=== PATIENT | female | born 1965 | race Two or more races ===

== ENCOUNTER 2024-02-24 20:16 | Emergency (ER) | payer OTHER ==
[~2024-02-24] VITALS: Ht 157.5 cm; Wt 80.9 kg
[2024-02-24] MEDS: HYDROcodone-ACET 5/325MG TAB PO ONE (21:54)
[2024-02-24] MEDS: ONDANSETRON ODT 4 MG TAB PO ONE (21:54)
[2024-02-24] MEDS: MECLIZINE HCL 25 MG TAB PO ONE (21:54)
[2024-02-24] MEDS: KETOROLAC TROMETH 60MG/2ML VIAL IM ONE (21:55)
[2024-02-24 22:01] LABS: Urine Bacteria FEW /hpf (None Seen); Urine Blood Negative /uL (Negative); Urine Clarity Clear (Clear); Urine Color Light-Yellow (Yellow); Urine Mucus FEW (None Seen); Urine Protein, UAD Negative (Negative); Urine Specific Gravity 1.009 (1.001-1.035); Urine Urobilinogen Normal (Negative); Urine WBC 8 /hpf (0 - 5); Urine pH 5.5 (5.0-9.0)
[2024-02-24] MEDS: SODIUM CHLORIDE 0.9% 1,000 ML IV ONE (23:16)
[2024-02-24] MEDS ORDERED: ARTIFICIAL TEARS 15ml EACHEYE ONE (23:30)
[2024-02-24 23:57] LABS: Basophils # (auto) 0.1 10 ^3/uL (0-0.2); Basophils % (auto) 0.6 % (0.0-2.0); Eosinophils # (auto) 1.3 10 ^3/uL (0-0.8); Hematocrit 38.9 % (36.0-46.0); Hemoglobin 12.8 g/dL (12.2-16.2); Lymphocytes # (auto) 3.1 10 ^3/uL (0.4-5.4); Lymphocytes % (auto) 24.1 % (10.0-50.0); Mean Corpuscular Hemoglobin 29.8 pg (28.0-32.0); Mean Corpuscular Hgb Conc. 32.9 g/dL (32.0-36.0); Mean Corpuscular Volume 90.4 fL (80.0-100.0); Monocytes # (auto) 0.9 10 ^3/uL (0-1.3); Monocytes % (auto) 7.2 % (0.0-12.0); Neutrophils # (auto) 7.5 10 ^3/uL (1.6-8.6); Neutrophils % (auto) 58.1 % (37.0-80.0); Red Cell Distribution Width 13.2 % (11.8-14.3); White Blood Cell 12.9 10^3/uL (4.4-10.8)
[2024-02-24] MEDS: NITROFURANTOIN 100 mg CAP PO ONE (23:59)
[2024-02-25 00:22] LABS: Alanine Aminotransferase 17 U/L (7-40); Alkaline Phosphatase 62 U/L (46-116); Anion Gap 5 (5-15); Aspartate Aminotransferase 12 U/L (13-40); BUN/Creatinine Ratio 12.8 (10.0-20.0); Blood Urea Nitrogen 11 mg/dL (9-23); Calcium 9.5 mg/dL (8.7-10.4); Carbon Dioxide 26 mmol/L (20-30); Chloride 108 mmol/L (98-107); Glucose 149 mg/dL (74-106); Lipase 36 U/L (12-53); Potassium 3.8 mmol/L (3.5-5.1); Sodium 139 mmol/L (136-145)
[2024-02-25 00:23] LABS: Albumin 4.1 g/dL (3.2-4.8); Bilirubin, Total 0.4 mg/dL (0.2-1.0); Total Protein 6.8 g/dL (5.7-8.2)
[2024-02-25] MEDS ORDERED: NITR-87 PO (01:24)
[2024-02-25] MEDS: SODIUM CHLORIDE 0.9% 1,000 ML IV ONE (01:54)
[2024-02-25] MEDS: cefTRIAXone SOD 1,000 MG VL IM ONE (01:54)
[2024-02-25 02:32] VITALS: BP 119/59; PULSE 58; RESP 17; TEMP 97.4; O2SAT 99
== END 2024-02-25 01:28 | disposition home or self-care (01) ==
LOC: ER 20:16
DX: I24.9 Acute ischemic heart disease, unspecified (principal); N39.0 Urinary tract infection, site not specified; R00.1 Bradycardia, unspecified
CPT/HCPCS: 36415; 80053; 81001; 83605; 83690; 84484; 85025; 93005; 96360; 96361; 96372; 99285; J0696; J1885; J7030; J8597; Q0162

== ENCOUNTER 2024-05-06 14:29 | Emergency (ER) | payer OTHER ==
[~2024-05-06] VITALS: Ht 165.1 cm; Wt 80.7 kg
[~2024-05-06 14:29] MED LIST: NITR-87 PO
[2024-05-06 14:57] LABS: Urine Bacteria None Seen /hpf (None Seen)
[2024-05-06 14:58] LABS: Basophils # (auto) 0.1 10 ^3/uL (0-0.2); Basophils % (auto) 0.7 % (0.0-2.0); Eosinophils # (auto) 1.3 10 ^3/uL (0-0.8); Hematocrit 40.8 % (36.0-46.0); Lymphocytes # (auto) 2.6 10 ^3/uL (0.4-5.4); Mean Corpuscular Hemoglobin 30.3 pg (28.0-32.0); Mean Corpuscular Hgb Conc. 34.2 g/dL (32.0-36.0); Mean Corpuscular Volume 88.7 fL (80.0-100.0); Monocytes # (auto) 0.8 10 ^3/uL (0-1.3); Monocytes % (auto) 8.3 % (0.0-12.0); Neutrophils # (auto) 4.6 10 ^3/uL (1.6-8.6); Nucleated Red Blood Cells % 0.2 %; Platelet Count (auto) 300 10^3/uL (140-450); White Blood Cell 9.4 10^3/uL (4.4-10.8)
[2024-05-06 15:12] LABS: Urine Blood Negative /uL (Negative); Urine Clarity Clear (Clear); Urine Color Light-Yellow (Yellow); Urine Protein, UAD Negative (Negative); Urine Specific Gravity 1.019 (1.001-1.035); Urine Urobilinogen Normal (Negative); Urine WBC 1 /hpf (0 - 5)
[2024-05-06 15:13] LABS: Alanine Aminotransferase 21 U/L (7-40); Albumin 4.5 g/dL (3.2-4.8); Alkaline Phosphatase 77 U/L (46-116); Anion Gap 5 (5-15); Aspartate Aminotransferase 13 U/L (13-40); BUN/Creatinine Ratio 18.1 (10.0-20.0); Bilirubin, Total 0.4 mg/dL (0.2-1.0); Blood Urea Nitrogen 17 mg/dL (9-23); Calcium 10.5 mg/dL (8.7-10.4); Carbon Dioxide 27 mmol/L (20-30); Chloride 108 mmol/L (98-107); Glucose 130 mg/dL (74-106); Potassium 4.3 mmol/L (3.5-5.1); Sodium 140 mmol/L (136-145); Total Protein 7.2 g/dL (5.7-8.2)
[2024-05-06 15:36] VITALS: BP 144/68; PULSE 69; RESP 16; TEMP 98.6; O2SAT 97
[2024-05-06] MEDS: MORPHINE SULFATE 4 MG/ML SYR/VIAL IV ONE (15:39)
[2024-05-06] MEDS: ONDANSETRON HCL 4 MG/2 ML VIAL IV ONE (15:40)
[2024-05-06] MEDS: ASPirin 325 MG TAB PO ONE (15:42)
[2024-05-06] MEDS: NITROGLYCERIN 0.4 MG SL TAB SL ONE (15:43)
== END 2024-05-06 15:54 | disposition home or self-care (01) ==
LOC: ER 14:29
DX: R07.89 Other chest pain (principal); E11.65 Type 2 diabetes mellitus with hyperglycemia; I10 Essential (primary) hypertension; E78.5 Hyperlipidemia, unspecified
CPT/HCPCS: 36415; 80053; 81001; 84484; 85025; 93005

== ENCOUNTER 2025-01-02 11:56 | Emergency (ER) | payer OTHER ==
[~2025-01-02] VITALS: Ht 162.6 cm; Wt 82.7 kg
[2025-01-02 12:31] VITALS: BP 138/75; PULSE 66; RESP 16; TEMP 98; O2SAT 99
--- NOTE | 2025-01-02 13:15 | ED.PDOC ---
Musculoskeletal HPI Comments 59-year-old female presents to the ER with past MHx of cancer, diabetes, high lipids, hypertension, CVA for an insect bite. Patient states that she was stung by a scorpion today on the bottom of her left foot 2 hours ago in her patio. Associated with fatigue and shoulder pain. Pain rate of 9/10. Patient's PCP is Dr. Wade. Denies chills, fever, N/V/D, CP, SOB. Chief Complaint: Insect Bite Time Seen by MD: 13:00 Primary Care Provider: none Reviewed Notes: Nurses Notes, Medications, Allergies Allergies: Coded Allergies: NO KNOWN ALLERGIES (Unverified , 02/24/24) Home Meds Active Scripts Nitrofurantoin Monohydrate Mac (Macrobid) 100 Mg Cap, 100 MG PO BID for 7 Days, #14 CAP Prov:CIRABG PAC 02/25/24 Information Source: Patient Mode of Arrival: Ambulatory Location: Left Extremity Location: Foot Timing: Hours Prehospital treatment: None Severity: Moderate Able to Move Extremity: Yes Bear Weight: Fully Pain: Moderate Hand Dominance: Right Mechanism: Other (Insect bite) Circumstances: Spontaneous Onset of Symptoms: Spontaneous Symptoms: Pain DVT Risk Factors: NONE Associated signs and symptoms: Foot pain Past Medical History PAST MEDICAL HISTORY: Cancer, DM, High Lipids, HTN Surgical History: Denies all surgeries NATIONAL ACCOUNTS SALES History: No Pertinent NATIONAL ACCOUNTS SALES History Family History Family History: Reviewed,noncontributory to illness, Unknown Social History Smoker: Non-Smoker Alcohol: Denies ETOH Use Drugs: Denies Drug Use Lives In: Home Constitutional: denies: chills, diaphoresis, fatigue, fever, malaise, sweats, weakness, others EENTM: denies: blurred vision, double vision, ear bleeding, ear discharge, ear drainage, ear pain, ear ringing, eye pain, eye redness, hearing loss, mouth pain, mouth swelling, nasal discharge, nose bleeding, nose congestion, nose pain, photophobia, tearing, throat pain, throat swelling, voice changes, others Respiratory: denies: cough, hemoptysis, orthopnea, SOB at rest, shortness of breath, SOB with excertion, stridor, wheezing, others Cardiovascular: denies: chest pain, dizzy spells, diaphoresis, Dyspnea on exertion, edema, irregular heart beat, left arm pain, lightheadedness, palpitations, PND, syncope, others Gastrointestinal: denies: abdomen distended, abdominal pain, blood streaked bowels, constipated, diarrhea, dysphagia, difficulty swallowing, hematemesis, melena, nausea, poor appetite, poor fluid intake, rectal bleeding, rectal pain, vomiting, others Genitourinary: denies: abnormal vagina bleeding, burning, dyspareunia, dysuria, flank pain, frequency, hematuria, incontinence, pain, , vagina discharge, urgency, others Neurological: denies: dizziness, fainting, headache, left sided numbness, left sided weakness, numbness, paresthesia, pre-existing deficit, right sided numbness, right sided weakness, seizure, speech problems, tingling, tremors, weakness, others Musculoskeletal: denies: back pain, gout, joint pain, joint swelling, muscle pain, muscle stiffness, neck pain, others Integumetry: reports: others (Insect bite); denies: bruises, change in color, change in hair/nails, dryness, laceration, lesions, lumps, rash, wounds Allergic/Immunocompromised: denies: Difficulty Healing, Frequent Infections, Hives, Itching, others Hematologic/Lymphatic: denies: anemia, blood clots, easy bleeding, easy bruising, swollen glands, others Endocrine: denies: excessive hunger, excessive sweating, excessive thirst, excessive urination, flushing, intolerance to cold, intolerance to heat, unexplained weight gain, unexplained weight loss, others Psychiatric: denies: anxiety, bipolar disorder, depression, hopeless, panic disorder, schizophrenia, sleepless, suicidal, others All Other Systems: Reviewed and Negative Physical Exam General Appearance: No Apparent Distress, Normal HEENT: Normal ENT Inspection, Pharynx Normal, TMs Normal Neck: Full Range of Motion, Non-Tender, Normal, Normal Inspection Respiratory: Chest Non-Tender, Lungs Clear, No Accessory Muscle Use, No Respiratory Distress, Normal Breath Sounds Cardiovascular: No Murmur, No Gallop, Regular Rate/Rhythm Breast Exam: Deferred Gastrointestinal: No Organomegaly, Non Tender, No Pulsatile Mass, Normal Bowel Sounds, Soft Genitalia: Deferred Pelvic: Deferred Rectal: Deferred Extremities: No calf tenderness, Normal capillary refill, Normal inspection, Normal range of motion, Non-tender, No pedal edema Musculoskeletal : Apperance: Normal Neurologic: Alert, apigee developer II-XII nml as Tested, No Motor Deficits, Normal Affect, Normal Mood, No Sensory Deficits Cerebellar Function: Normal Reflexes: Normal Skin: Dry, Normal Color, Warm Lymphatic: No Adenopathy Was a procedure done? Was a procedure done?: No Images 1 - Normal on inspection. No puncture wound. No erythema. No swelling. No localized TTP. Full ROM. Cap refill less than 3 seconds and dorsalis pedis pulses 2+ Differential Diagnosis EXT Differential Diagnosis: Other X-Ray, Labs, Meds, VS Vital Signs Date Time Temp Pulse Resp B/P (MAP) Pulse Ox O2 Delivery O2 Flow Rate FiO2 01/02/25 12:31 98.0 66 16 138/75 (96) 99 98.0 01/02/25 12:31 66 16 99 Room Air 01/02/25 12:09 97.5 75 21 152/77 (102) 99 97.5 X-Ray, Labs, Meds, VS Comment 59-year-old female presents to the ER with past MHx of cancer, diabetes, high lipids, hypertension, CVA for an insect bite. Patient arrives alert and oriented, ABC's intact, afebrile, vital signs stable, saturating well in room air Tap test negative Called poison control and supportive care was recommended. Advised Cold compress to area of sting Analgesic and anti-inflammatory medications Additional MDM Review of External, Non-ED records: External records reviewed. May 06, 2024 Discussion with independent historian (EMS, family) history obtained from the patient at bedside Chronic conditions affecting care: Cancer, DM, high lipids, HTN, CVA Social determinants of health affecting care: Not applicable Time of 1ST Reevaluation: 13:30 Reevaluation 1ST: Unchanged Patient Education/Counseling: Diagnosis, Treatment, Prognosis Family Education/Counseling: No Family Present Departure 1 Departure Time of Disposition: 08:13 Impression: Primary Impression: Eloped from emergency department Disposition: 07 LEFT AWOL/ELOPED Condition: Serious Discharged With: Self Critical Care Note Critical Care Time?: No Stability Stability form required: No Heart Score Heart Score: Heart Score Response (Comments) Value History N/A 0 EKG N/A 0 Age N/A 0 Risk Factors N/A 0 Troponin N/A 0 Total 0 I personally scribed for NATHANIEL DEL CID NP ([email or web address]) on 01/02/25 at 13:15. Electronically submitted by Julio Cesar Cornejo ([email or web address]). NATHANIEL DEL CID NP Jan 02, 2025 13:15
== END 2025-01-02 13:16 | disposition left against medical advice (07) ==
LOC: ER 11:56
DX: T63.2X1A Toxic effect of venom of scorpion, accidental (unintentional), initial encounter (principal); M25.512 Pain in left shoulder; M79.672 Pain in left foot; R53.83 Other fatigue; I10 Essential (primary) hypertension; E11.9 Type 2 diabetes mellitus without complications; E78.5 Hyperlipidemia, unspecified; Z86.73 Personal history of transient ischemic attack (TIA), and cerebral infarction without residual deficits; Y92.89 Other specified places as the place of occurrence of the external cause

== ENCOUNTER 2025-03-27 10:21 | Emergency (ER) | payer OTHER ==
[~2025-03-27] VITALS: Ht 162.6 cm; Wt 83.5 kg
--- NOTE | 2025-03-27 10:50 | ED.PDOC ---
HPI Comments This is a 59-year-old female who comes in with chief complaint of chest pain times approximately one week. The patient states that she had similar chest pain a months ago but it turned out to be somewhat musculoskeletal in nature. The patient states that now the pain seems to be worsening and seems somewhat different. She states that she is having some nausea but no shortness a breath. The patient states that the pain is a 6/10. Upon arrival the patient was able to ambulate into the emergency department's without any difficulty. Chief Complaint: Chest Pain Time Seen by MD: 10:28 Primary Care Provider: DONNA Reviewed Notes: Nurses Notes, Medications, Allergies (No allergies to medications) Allergies: Coded Allergies: NO KNOWN ALLERGIES (Unverified , 02/24/24) Home Meds Active Scripts Levofloxacin Hemihydrate (LEVOFLOXACIN) 250 Mg Tab, 250 MG PO DAILY for 3 Days, #3 TAB Prov:ÁNGEL PECK MD 03/27/25 Ciprofloxacin Hcl (Cipro) 500 Mg Tab, 1 TAB PO BID, #14 TAB Prov:MATTIE LOPEZ MD 03/27/25 Nitrofurantoin Monohydrate Mac (Macrobid) 100 Mg Cap, 100 MG PO BID for 7 Days, #14 CAP Prov:BG DENIS PAC 02/25/24 Information Source: Patient Mode of Arrival: Ambulatory Severity: Moderate Timing: Days Duration: Since onset Prehospital treatment: None Location: Chest (L) Radiation: Arm (R), Arm (L) Quality: Pressure Onset: At Rest Cardiac Risk Factors: HTN PE Risk Factors: None History of: Similar pain in past Modifying Factors: Nothing Associated Signs and Symptoms: N/V (Nausea but no vomiting) Past Medical History PAST MEDICAL HISTORY: Cancer, DM, High Lipids Surgical History: BTL HOUSEHOLD REFRIGERATION MECHANIC History: No Pertinent HOUSEHOLD REFRIGERATION MECHANIC History Family History Family History: Family hx of DM Social History Smoker: Non-Smoker Alcohol: Denies ETOH Use Drugs: Denies Drug Use Lives In: Home Constitutional: denies: chills, diaphoresis, fatigue, fever, malaise, sweats, weakness, others EENTM: denies: blurred vision, double vision, ear bleeding, ear discharge, ear drainage, ear pain, ear ringing, eye pain, eye redness, hearing loss, mouth pain, mouth swelling, nasal discharge, nose bleeding, nose congestion, nose pain, photophobia, tearing, throat pain, throat swelling, voice changes, others Respiratory: denies: cough, hemoptysis, orthopnea, SOB at rest, shortness of breath, SOB with excertion, stridor, wheezing, others Cardiovascular: reports: chest pain; denies: dizzy spells, diaphoresis, Dyspnea on exertion, edema, irregular heart beat, left arm pain, lightheadedness, palpitations, PND, syncope, others Gastrointestinal: reports: nausea; denies: abdomen distended, abdominal pain, blood streaked bowels, constipated, diarrhea, dysphagia, difficulty swallowing, hematemesis, melena, poor appetite, poor fluid intake, rectal bleeding, rectal pain, vomiting, others Genitourinary: denies: abnormal vagina bleeding, burning, dyspareunia, dysuria, flank pain, frequency, hematuria, incontinence, pain, , vagina discharge, urgency, others Neurological: denies: dizziness, fainting, headache, left sided numbness, left sided weakness, numbness, paresthesia, pre-existing deficit, right sided numbness, right sided weakness, seizure, speech problems, tingling, tremors, weakness, others Musculoskeletal: denies: back pain, gout, joint pain, joint swelling, muscle pain, muscle stiffness, neck pain, others Integumetry: denies: bruises, change in color, change in hair/nails, dryness, laceration, lesions, lumps, rash, wounds, others Allergic/Immunocompromised: denies: Difficulty Healing, Frequent Infections, Hives, Itching, others Hematologic/Lymphatic: denies: anemia, blood clots, easy bleeding, easy bruising, swollen glands, others Endocrine: denies: excessive hunger, excessive sweating, excessive thirst, excessive urination, flushing, intolerance to cold, intolerance to heat, unexpla ined weight gain, unexplained weight loss, others Psychiatric: denies: anxiety, bipolar disorder, depression, hopeless, panic disorder, schizophrenia, sleepless, suicidal, others Physical Exam General Appearance: Moderate Distress HEENT: Normal ENT Inspection, Pharynx Normal, TMs Normal Neck: Full Range of Motion, Non-Tender, Normal, Normal Inspection Respiratory: Chest Non-Tender, Lungs Clear, No Accessory Muscle Use, No Respiratory Distress, Normal Breath Sounds Cardiovascular: No Edema, No JVD, No Murmur, No Gallop, Normal Peripheral Pulses, Regular Rate/Rhythm Breast Exam: Deferred Gastrointestinal: No Organomegaly, Non Tender, No Pulsatile Mass, Normal Bowel Sounds, Soft Genitalia: Deferred Pelvic: Deferred Rectal: Deferred Extremities: No calf tenderness, Normal capillary refill, Normal inspection, Normal range of motion, Non-tender, No pedal edema Musculoskeletal : Apperance: Normal Neurologic: Alert, patent litigation associate II-XII nml as Tested, No Motor Deficits, Normal Affect, Normal Mood, No Sensory Deficits Cerebellar Function: Normal Reflexes: Normal Skin: Dry, Normal Color, Warm Lymphatic: No Adenopathy EKG EKG : Pulse Rate (adult): 63 [place]: Normal Cardiac Rhythm: NSR Block: None ST: Nonsp Was a procedure done? Was a procedure done?: No CP Differential Dx Differential Diagnosis: Angina, MA, Pulmonary Embolus Differential Diagnosis: CHF Differential Diagnosis: Pericarditis X-Ray, Labs, Meds, VS Vital Signs Date Time Temp Pulse Resp B/P (MAP) Pulse Ox O2 Delivery O2 Flow Rate FiO2 03/27/25 11:27 61 03/27/25 11:07 Room Air* 0 21 03/27/25 10:50 63 03/27/25 10:32 99.0 98 17 148/78 (101) 99 99.0 03/27/25 10:27 63 Lab Test 03/27/25 13:33 03/27/25 11:37 03/27/25 10:40 03/27/25 10:34 Range/Units Troponin I High Sensitivity < 3 L < 3 L < 3 L </=34 ng/L Urine Color Light-yellow Yellow Urine Clarity Turbid H Clear Urine pH 5.5 5.0-9.0 Urine Specific [place] 1.014 1.001-1.035 Urine Protein Negative Negative Urine Ketones Negative Negative Urine Blood Negative Negative /uL Urine Nitrite Negative Negative Urine Bilirubin Negative Negative Urine Urobilinogen Normal Negative mg/dL Urine Leukocyte Esterase 2+ Negative /uL Urine RBC 5 0 - 4 /hpf Urine Microscopic WBC 7 H 0-5 /HPF Urine Squamous Epithelial Cells Mod <5 /hpf Urine Bacteria Few H None Seen /hpf Urine Glucose 1+ H Normal mg/dL White Blood Count 5.7 4.4-10.8 10^3/uL Red Blood Count 4.49 4.0-5.20 10^6/uL Hemoglobin 13.5 12.2-16.2 g/dL Hematocrit 39.5 36.0-46.0 % Mean Corpuscular Volume 88.1 80.0-100.0 fL Mean Corpuscular Hemoglobin 30.1 28.0-32.0 pg Mean Corpuscular Hemoglobin Concent 34.2 32.0-36.0 g/dL Red Cell Distribution Width 13.0 11.8-14.3 % Platelet Count 274 140-450 10^3/uL Mean Platelet Volume 8.2 6.9-10.8 fL Neutrophils (%) (Auto) 58.4 37.0-80.0 % Lymphocytes (%) (Auto) 26.7 10.0-50.0 % Monocytes (%) (Auto) 8.2 0.0-12.0 % Eosinophils (%) (Auto) 6.2 0.0-7.0 % Basophils (%) (Auto) 0.5 0.0-2.0 % Neutrophils # (Auto) 3.3 1.6-8.6 10 ^3/uL Lymphocytes # (Auto) 1.5 0.4-5.4 10 ^3/uL Monocytes # (Auto) 0.5 0-1.3 10 ^3/uL Eosinophils # (Auto) 0.4 0-0.8 10 ^3/uL Basophils # (Auto) 0 0-0.2 10 ^3/uL Nucleated Red Blood Cells 0.2 % D-Dimer, Quantitative 0.99 H 0.0-0.49 mg/L FEU Sodium Level 141 136-145 mmol/L Potassium Level 4.0 3.5-5.1 mmol/L Chloride Level 106 98-107 mmol/L Carbon Dioxide Level 27 20-31 mmol/L Anion Gap 8 5-15 Blood Urea Nitrogen 12 9-23 mg/dL Creatinine 0.90 0.550-1.02 mg/dL Glomerular Filtration Rate Calc 74 >90 mL/min BUN/Creatinine Ratio 13.3 10.0-20.0 Serum Glucose 215 H 74-106 mg/dL Calcium Level 10.2 8.7-10.4 mg/dL Current Medications Medications (Trade) Dose Ordered Sig/Erin Route Start Time Stop Time Status Last Admin Aspirin 162 mg ONCE ONCE PO 03/27/25 10:45 03/27/25 10:46 DC 7/22/25 10:48 The patient was given aspirin 162 mg by mouth The patient's CBC is within normal limits The chemistry panel is within normal limits The D-dimer is 0.99 The troponin level is negative x2 The chest x-ray is negative We contacted the hospitalist from [facility] He did come and evaluate the patient secondary to the slightly elevated D-dimer At this time, the patient is being discharged by the [facility] physician He is given the patient instructions and has discharged the patient Images Reviewed?: Images reviewed and evaluated by me Time of 1ST Reevaluation: 10:49 Reevaluation 1ST: Unchanged Patient Education/Counseling: Diagnosis, Treatment, Prognosis, Need For Follow Up Family Education/Counseling: No Family Present SEPSIS Sepsis Screen Date sepsis recognized/suspect: Mar 27, 2025 Time Sepsis recognized/suspect: 1023 Recent Procedure: No On Antibiotic Therapy: No Respiratory Rate >20: No Heart Rate >90: No Temp<36 C (96.8 F) or >38.3 C: No SBP <90 or MAP <65 mmHG: No New Acute Mental Status Change: No Is the patient on CPAP, BIPAP,: No Physician Orders Heplock Iv (03/27/25 10:40) Chest Two Views Routine (03/27/25 10:40) Electrocardigram (03/27/25 11:40) Electrocardigram (03/27/25 13:40) Discharge (03/27/25 14:28) Vital Signs Date Time Temp Pulse Resp B/P (MAP) Pulse Ox O2 Delivery O2 Flow Rate FiO2 03/27/25 11:27 61 03/27/25 11:07 Room Air* 0 21 03/27/25 10:50 63 03/27/25 10:32 99.0 98 17 148/78 (101) 99 99.0 03/27/25 10:27 63 Laboratory Tests Test 03/27/25 10:34 White Blood Count 5.7 10^3/uL (4.4-10.8) Medications Medications Dose Ordered Sig/Erin Route Start Time Stop Time Status Last Admin Dose Admin Aspirin 162 mg ONCE ONCE PO 03/27/25 10:45 03/27/25 10:46 DC 03/27/25 10:48 Departure 1 Departure Time of Disposition: 12:48 Impression: Primary Impression: UTI (urinary tract infection) Qualified Codes: N30.00 - Acute cystitis without hematuria Additional Impressions: Acute chest pain Elevated d-dimer Disposition: HOME / SELF CARE / HOMELESS Condition: Fair e-Prescriptions Levofloxacin Hemihydrate (LEVOFLOXACIN) 250 Mg Tab 250 MG PO DAILY for 3 Days, #3 TAB Prov: ÁNGEL PECK MD 03/27/25 Ciprofloxacin Hcl (Cipro) 500 Mg Tab 1 TAB PO BID, #14 TAB Prov: MATTIE LOPEZ MD 03/27/25 Discharged With: Self Critical Care Note Critical Care Time?: No Stability Stability form required: No Heart Score Heart Score: Heart Score Response (Comments) Value History Slightly Suspicious 0 EKG Normal 0 Age 45-64 1 Risk Factors 1 or 2 risk factors 1 Troponin Normal limit 0 Total 2 MATTIE LOPEZ MD Mar 27, 2025 10:50
--- NOTE | 2025-03-27 11:17 | DVH ---
EXAM: XY CHEST TWO VIEWS ROUTINE CLINICAL HISTORY: CP COMPARISON: None TECHNIQUE: Frontal and lateral view of the chest was obtained FINDINGS: Lines and Tubes: None Lungs: No focal consolidation. Pleura: No effusion. No pneumothorax. Cardiomediastinal contours: Unremarkable Bones: No acute osseous abnormality. IMPRESSION: No acute cardiopulmonary disease.
[2025-03-27 11:18] LABS: Hematocrit 39.5 % (36.0-46.0); Hemoglobin 13.5 g/dL (12.2-16.2); Mean Corpuscular Hemoglobin 30.1 pg (28.0-32.0); Mean Corpuscular Volume 88.1 fL (80.0-100.0); Nucleated Red Blood Cells % 0.2 %
--- NOTE | 2025-03-27 11:28 | ECG ---
[facility] Test Date: 2025-03-27 Test Time: 11:27:08 Pat Name: MENA GRANDA Department: ED Room: Gender: F Vp Clinical Research: JUAN : 1965 Requested By: MATTIE LOPEZ Order Number: [id number] Reading MD: Melvin Das Measurements Intervals [place] Rate: 61 P: 48 [place]: 178 QRS: -34 QRSD: 93 T: 24 QT: 402 QTc: 405 Interpretive Statements Sinus rhythm Atrial premature complex Left axis deviation Abnormal R-wave progression, late transition Electronically Signed On 03-28-2025 17:00:51 PDT by Melvin Das Please click the below link to view image of tracing.
[2025-03-27 11:31] LABS: Chloride 106 mmol/L (98-107); Potassium 4.0 mmol/L (3.5-5.1); Sodium 141 mmol/L (136-145)
[2025-03-27 11:32] LABS: Anion Gap 8 (5-15); Calcium 10.2 mg/dL (8.7-10.4); Carbon Dioxide 27 mmol/L (20-31)
[2025-03-27 11:37] LABS: BUN/Creatinine Ratio 13.3 (10.0-20.0); Blood Urea Nitrogen 12 mg/dL (9-23)
[2025-03-27 11:38] LABS: Glucose 215 mg/dL (74-106)
[2025-03-27 12:14] LABS: Urine Protein, UAD Negative (Negative)
[2025-03-27] MEDS ORDERED: CIPR-173 PO (12:51)
[2025-03-27] MEDS ORDERED: LEVO250T58 PO (14:31)
[2025-03-27 15:13] VITALS: BP 139/53; PULSE 67; RESP 18; TEMP 98; O2SAT 96
--- NOTE | 2025-03-27 16:29 | DVHINCON2 ---
DATE OF CONSULTATION: 03/27/2025 CHIEF COMPLAINT: Coming in for chest pain. HISTORY OF PRESENT ILLNESS: This is a 59-year-old female with significant past medical history for diabetes mellitus type 2, essential hypertension, hyperlipidemia, who presented to the emergency room with a chief complaint of 7 days worth of dull aching pain in her left upper chest region. The patient says that the pain kind of gets worse with sitting up and improves on standing. She says that she has no associated nausea, vomiting, or shortness of breath. She does not have any pruritic symptoms such as worsening with deep inspiration and currently does not have a cough or phlegm. The patient says that symptoms are exacerbated with lifting but not with exertional activities such as walking upstairs or walking long distances. Typically, the pain also gets worse when sitting, when her back hits the back of the chair, kind of irritates her back and goes to the front of her chest, apparently. The patient otherwise denies any orthopnea or lower extremity edema. She has no known history of coronary artery disease or congestive heart failure. No asthma or COPD history. The patient denies any history of tobacco use. The patient denies any fevers or chills. She has chronic loose stools. No constipation. No bloody or tarry stools. No urinary frequency, urgency, or burning sensation. PAST MEDICAL HISTORY: Diabetes mellitus type 2, essential hypertension, hyperlipidemia. PAST SURGICAL HISTORY: Tubal ligation. SOCIAL HISTORY: No tobacco, no alcohol, no illicit drugs. MEDICATIONS AT HOME: Include metformin, lisinopril, glipizide, and atorvastatin. MEDICATION ALLERGIES: No known drug allergies. REVIEW OF SYSTEMS: A 10-point review of systems was covered with the patient and was negative with exception to what was present in history of present illness. PHYSICAL EXAMINATION: VITAL SIGNS: Temperature 99, pulse rate 98, respiratory rate of 17, blood pressure 148/78, pulse ox about 99% on room air. GENERAL: Seems to be alert and oriented x 4, not in acute distress female, sitting up in a chair. HEENT: Normocephalic, atraumatic. Extraocular muscles are intact. Pupils are equally round and reactive to light and accommodation. Mucous membranes are moist. CARDIOVASCULAR: S1 and S2 positive. Regular rate and rhythm. No rubs, gallops, or murmurs. LUNGS: Clear to auscultation bilaterally. No wheezing, rhonchi, or rales. ABDOMEN: Obese, soft, nontender, and nondistended. Positive bowel sounds. No guarding or rebound. EXTREMITIES: No lower extremity edema, clubbing, or cyanosis. NEUROLOGIC: No focal deficits. LABORATORY WORKUP: Shows a white count of 5.7, H and H of 13.0/39.5, platelet count 274,000. Sodium 141, potassium 4.0, chloride of 106, carbon dioxide of 27, anion gap of 8, BUN of 12, creatinine 0.90, serum glucose of 215, calcium 10.2. Troponins of 3, repeat of 3, and a third troponin of 3. Urinalysis was positive for leukocyte esterase 2+, rbc's of 5. D-dimer 0.99. IMAGING: Chest x-ray was completed. It shows no acute cardiopulmonary disease process. EKG completed, shows sinus rhythm, ventricular rate of 61 with atrial premature complexes. Otherwise, no ST elevation or depression, isolated T wave in V1. DIAGNOSES: * Atypical chest pain. * Uncomplicated urinary tract infection. PLAN: The patient was seen in the emergency room for assessment and evaluation was completed. The patient was ruled out for acute coronary syndrome. Three troponins were completed, that were negative. EKG revealed normal sinus rhythm without any ischemic changes. The patient's symptoms seem to be reproducible on examination, on palpating between her left shoulder blade and the spinous process. The patient says when sitting and laying towards either the end of the chair or wall, symptoms get exacerbated. The patient also says with lifting certain things and movements makes it worse; however, with exertion such as walking up stairs or walking long distances do not exacerbate her symptoms. The patient is also complaining of multiple arthritic pains around her shoulders and hands, which the patient has been informed to follow up with her primary care provider for further imaging. However, given her history of diabetes mellitus type 2, essential hypertension, hyperlipidemia, put her at high risk for coronary artery disease. The patient will be arranged to follow up with her electronic warfare officer, Dr. Childers, within the next 3-5 days for further outpatient cardiac risk stratification. The patient will be informed to continue taking all her current medications. The patient additionally was found to have a UA with positive leukocyte esterase and wbc's and will be given Levaquin 250 mg p.o. daily for a 3-day course. The patient otherwise is stable from my standpoint for discharge. The patient has been informed that in case if she does develop chest pressure with nausea, vomiting, shortness of breath, or diaphoresis to return to the emergency room for further treatment. The patient's followup with her primary care provider and Cardiology will be arranged by [facility] Case Management. Benito Niño MD LM/KEITH TID: [id number] RECEIPT: [id number]
--- NOTE | 2025-03-29 08:00 | ECG ---
[facility] Test Date: 2025-03-27 Test Time: 10:27:49 Pat Name: MENA GRANDA Department: er Room: Gender: F Aluminum Welder: millicent : 1965 Requested By: MATTIE LOPEZ Order Number: [id number] Reading MD: Melvin Das Measurements Intervals [place] Rate: 63 P: 41 [place]: 178 QRS: -39 QRSD: 94 T: 24 QT: 397 QTc: 407 Interpretive Statements Sinus rhythm Atrial premature complex Left axis deviation Electronically Signed On 04-04-2025 13:58:27 PDT by Melvin Das Please click the below link to view image of tracing.
== END 2025-03-27 15:18 | disposition home or self-care (01) ==
LOC: ER 10:21
DX: N39.0 Urinary tract infection, site not specified (principal); R07.89 Other chest pain; R79.1 Abnormal coagulation profile; E78.5 Hyperlipidemia, unspecified; E11.9 Type 2 diabetes mellitus without complications; I10 Essential (primary) hypertension; Z98.51 Tubal ligation status; Z85.9 Personal history of malignant neoplasm, unspecified; Z79.899 Other long term (current) drug therapy
CPT/HCPCS: 36415; 71046; 80048; 81001; 84484; 85025; 85379; 93005

== ENCOUNTER 2025-06-10 13:34 | Emergency (ER) | payer OTHER ==
[~2025-06-10] VITALS: Ht 165.1 cm; Wt 82.0 kg
[~2025-06-10 13:34] MED LIST changes: +CIPR-173 PO; +LEVO250T58 PO
--- NOTE | 2025-06-10 13:56 | ECG ---
[facility] Test Date: 2025-06-10 Test Time: 13:50:09 Pat Name: MENA GRANDA Department: [facility] ED Patient ID: [id number] Room: Gender: F Environmental Health Technologist: : 1965 Requested By: MATTIE LOPEZ Order Number: [id number] Reading MD: Measurements Intervals Vevay Rate: 55 P: 33 TN: 175 QRS: -32 QRSD: 94 T: 24 QT: 461 QTc: 441 Interpretive Statements Sinus arrhythmia Left axis deviation Abnormal R-wave progression, late transition Borderline T abnormalities, anterior leads Please click the below link to view image of tracing.
--- NOTE | 2025-06-10 15:16 | ED.PDOC ---
History of Present Illness HPI Comments 60-year-old female who comes in with chief complaint of dizziness since approximately 8:00 a.m. in the morning. The patient states that this is the 1st time she has ever had these symptoms. She denies any vomiting but is experiencing some nausea. There has been no chest pain or shortness for breath. There has been no diarrhea or fever. The patient denies any falls or headache. 911 was called and the patient was transported to our facility. EN route, the patient had an Accu-Chek within normal limits and was given Zofran 4 mg IV push after an IV Hep-Lock was established. Chief Complaint: Dizziness Time Seen by MD: 13:43 Primary Care Provider: DONNA Christina Notes: Nurses Notes, Principal Strategist Notes, Medications, Allergies (No allergies to medications) Allergies: Coded Allergies: NO KNOWN ALLERGIES (Unverified , 02/24/24) Home Meds Active Scripts Meclizine Hcl (Meclizine Hcl) 12.5 Mg Tab, 1 TAB PO BID, #60 TAB Prov:MATTIE LOPEZ MD 06/10/25 Levofloxacin Hemihydrate (LEVOFLOXACIN) 250 Mg Tab, 250 MG PO DAILY for 3 Days, #3 TAB Prov:ÁNGEL PECK MD 03/27/25 Ciprofloxacin Hcl (Cipro) 500 Mg Tab, 1 TAB PO BID, #14 TAB Prov:MATTIE LOPEZ MD 03/27/25 Nitrofurantoin Monohydrate Mac (Macrobid) 100 Mg Cap, 100 MG PO BID for 7 Days, #14 CAP Prov:BG DENIS PAC 02/25/24 Information Source: Patient, Emergency Med Personnel Mode of Arrival: EMS Severity: Moderate Duration: Since onset Prehospital treatment: 12 Lead EKG, Accucheck (Within normal limits), Road Boss, IVF, Other (Zofran 4 mg IV push) Associated signs and symptoms The patient is complaining of dizziness as well as the nausea Past Medical History PAST MEDICAL HISTORY: Cancer, DM, High Lipids, HTN Surgical History: BTL TRIMMING INSPECTOR History: No Pertinent TRIMMING INSPECTOR History Family History Family History: Family hx of DM, Family hx of HTN Social History Smoker: Non-Smoker Alcohol: Denies ETOH Use Drugs: Denies Drug Use Lives In: Home Constitutional: denies: chills, diaphoresis, fatigue, fever, malaise, sweats, weakness, others EENTM: denies: blurred vision, double vision, ear bleeding, ear discharge, ear drainage, ear pain, ear ringing, eye pain, eye redness, hearing loss, mouth pain, mouth swelling, nasal discharge, nose bleeding, nose congestion, nose pain, photophobia, tearing, throat pain, throat swelling, voice changes, others Respiratory: denies: cough, hemoptysis, orthopnea, SOB at rest, shortness of breath, SOB with excertion, stridor, wheezing, others Cardiovascular: denies: chest pain, dizzy spells, diaphoresis, Dyspnea on exertion, edema, irregular heart beat, left arm pain, lightheadedness, palpitations, PND, syncope, others Gastrointestinal: reports: nausea; denies: abdomen distended, abdominal pain, blood streaked bowels, constipated, diarrhea, dysphagia, difficulty swallowing, hematemesis, melena, poor appetite, poor fluid intake, rectal bleeding, rectal pain, vomiting, others Genitourinary: denies: abnormal vagina bleeding, burning, dyspareunia, dysuria, flank pain, frequency, hematuria, incontinence, pain, , vagina discharge, urgency, others Neurological: denies: dizziness, fainting, headache, left sided numbness, left sided weakness, numbness, paresthesia, pre-existing deficit, right sided numbness, right sided weakness, seizure, speech problems, tingling, tremors, weakness, others Musculoskeletal: denies: back pain, gout, joint pain, joint swelling, muscle pain, muscle stiffness, neck pain, others Integumetry: denies: bruises, change in color, change in hair/nails, dryness, laceration, lesions, lumps, rash, wounds, others Allergic/Immunocompromised: denies: Difficulty Healing, Frequent Infections, Hives, Itching, others Hematologic/Lymphatic: denies: anemia, blood clots, easy bleeding, easy bruising, swollen glands, others Endocrine: denies: excessive hunger, excessive sweating, excessive thirst, excessive urination, flushing, intolerance to cold, intolerance to heat, unexplained weight gain, unexplained weight loss, others Psychiatric: denies: anxiety, bipolar disorder, depression, hopeless, panic disorder, schizophrenia, sleepless, suicidal, others Physical Exam General Appearance: Mild Distress HEENT: Normal ENT Inspection, Pharynx Normal, TMs Normal Neck: Full Range of Motion, Non-Tender, Normal, Normal Inspection Respiratory: Chest Non-Tender, Lungs Clear, No Accessory Muscle Use, No Respiratory Distress, Normal Breath Sounds Cardiovascular: No Edema, No JVD, No Murmur, No Gallop, Normal Peripheral Pulses, Regular Rate/Rhythm Breast Exam: Deferred Gastrointestinal: No Organomegaly, Non Tender, No Pulsatile Mass, Normal Bowel Sounds, Soft Genitalia: Deferred Pelvic: Deferred Rectal: Deferred Extremities: No calf tenderness, Normal capillary refill, Normal inspection, Normal range of motion, Non-tender, No pedal edema Musculoskeletal : Apperance: Normal Neurologic: Alert, shoer II-XII nml as Tested, Motor Weakness, Normal Affect, Normal Mood, No Sensory Deficits Cerebellar Function: Normal Reflexes: Normal Skin: Dry, Normal Color, Warm Lymphatic: No Adenopathy Was a procedure done? Was a procedure done?: No Differential Dx Considerations may include: Generalized weakness, electrolyte imbalance X-Ray, Labs, Meds, VS Vital Signs Date Time Temp Pulse Resp B/P (MAP) Pulse Ox O2 Delivery O2 Flow Rate FiO2 06/10/25 17:17 98.4 65 12 142/64 (90) 97 98.4 06/10/25 13:56 98.7 66 16 153/93 96 98.7 06/10/25 13:50 55 Lab Test 06/10/25 15:22 Range/Units White Blood Count 8.7 4.4-10.8 10^3/uL Red Blood Count 4.80 4.0-5.20 10^6/uL Hemoglobin 14.2 12.2-16.2 g/dL Hematocrit 42.1 36.0-46.0 % Mean Corpuscular Volume 87.6 80.0-100.0 fL Mean Corpuscular Hemoglobin 29.5 28.0-32.0 pg Mean Corpuscular Hemoglobin Concent 33.7 32.0-36.0 g/dL Red Cell Distribution Width 13.2 11.8-14.3 % Platelet Count 277 140-450 10^3/uL Mean Platelet Volume 8.4 6.9-10.8 fL Neutrophils (%) (Auto) 67.9 37.0-80.0 % Lymphocytes (%) (Auto) 17.8 10.0-50.0 % Monocytes (%) (Auto) 6.5 0.0-12.0 % Eosinophils (%) (Auto) 7.1 H 0.0-7.0 % Basophils (%) (Auto) 0.7 0.0-2.0 % Neutrophils # (Auto) 5.9 1.6-8.6 10 ^3/uL Lymphocytes # (Auto) 1.5 0.4-5.4 10 ^3/uL Monocytes # (Auto) 0.6 0-1.3 10 ^3/uL Eosinophils # (Auto) 0.6 0-0.8 10 ^3/uL Basophils # (Auto) 0.1 0-0.2 10 ^3/uL Nucleated Red Blood Cells 0.0 % Sodium Level 141 136-145 mmol/L Potassium Level 4.2 3.5-5.1 mmol/L Chloride Level 103 98-107 mmol/L Carbon Dioxide Level 27 20-31 mmol/L Anion Gap 11 5-15 Blood Urea Nitrogen 11 9-23 mg/dL Creatinine 0.84 0.550-1.02 mg/dL Glomerular Filtration Rate Calc 80 >90 mL/min BUN/Creatinine Ratio 13.1 10.0-20.0 Serum Glucose 265 H 74-106 mg/dL Calcium Level 10.1 8.7-10.4 mg/dL Troponin I High Sensitivity 3 L </=34 ng/L Current Medications Medications (Trade) Dose Ordered Sig/Erin Route Start Time Stop Time Status Last Admin Meclizine HCl (Antivert Tablet) 25 mg ONCE ONCE PO 06/10/25 15:15 06/10/25 15:16 DC 06/10/25 15:21 IV Hep-Lock was established The patient was given Zofran EN route. The patient is being given meclizine 25 mg p.o. The patient is being discharged at this time The patient will return to the emergency department's condition worsens Images Reviewed?: Images reviewed and evaluated by me Time of 1ST Reevaluation: 15:15 Reevaluation 1ST: Unchanged Patient Education/Counseling: Diagnosis, Treatment, Prognosis Family Education/Counseling: No Family Present SEPSIS Sepsis Screen Date sepsis recognized/suspect: Jun 10, 2025 Time Sepsis recognized/suspect: 1358 Recent Procedure: No On Antibiotic Therapy: No Respiratory Rate >20: No Heart Rate >90: No Temp<36 C (96.8 F) or >38.3 C: No SBP <90 or MAP <65 mmHG: No New Acute Mental Status Change: No Is the patient on CPAP, BIPAP,: No Physician Orders Heplock Iv (06/10/25 15:10) Road Boss (06/10/25 15:10) Blood Pressure (06/10/25 15:10) Pulse Oximetry (06/10/25 15:10) Electrocardigram (06/10/25 15:10) Vital Signs Date Time Temp Pulse Resp B/P (MAP) Pulse Ox O2 Delivery O2 Flow Rate FiO2 06/10/25 17:17 98.4 65 12 142/64 (90) 97 98.4 06/10/25 13:56 98.7 66 16 153/93 96 98.7 06/10/25 13:50 55 Laboratory Tests Test 06/10/25 15:22 White Blood Count 8.7 10^3/uL (4.4-10.8) Medications Medications Dose Ordered Sig/Erin Route Start Time Stop Time Status Last Admin Dose Admin Meclizine HCl 25 mg ONCE ONCE PO 06/10/25 15:15 06/10/25 15:16 DC 06/10/25 15:21 Departure 1 Departure Time of Disposition: 15:16 Impression: Primary Impression: Dizziness Disposition: 01 HOME / SELF CARE / HOMELESS Condition: Fair e-Prescriptions Meclizine Hcl (Meclizine Hcl) 12.5 Mg Tab 1 TAB PO BID, #60 TAB Prov: MATTIE LOPEZ MD 06/10/25 Discharged With: Self Critical Care Note Critical Care Time?: No Stability Stability form required: No Heart Score Heart Score: Heart Score Response (Comments) Value History N/A 0 EKG N/A 0 Age N/A 0 Risk Factors N/A 0 Troponin N/A 0 Total 0 MATTIE LOPEZ MD Jun 10, 2025 15:16
[2025-06-10] MEDS: MECLIZINE HCL 25 MG TAB PO ONE (15:21)
[2025-06-10 15:29] LABS: Hematocrit 42.1 % (36.0-46.0); Hemoglobin 14.2 g/dL (12.2-16.2); Mean Corpuscular Hemoglobin 29.5 pg (28.0-32.0); Mean Corpuscular Volume 87.6 fL (80.0-100.0); Nucleated Red Blood Cells % 0.0 %
[2025-06-10 15:38] LABS: Chloride 103 mmol/L (98-107); Potassium 4.2 mmol/L (3.5-5.1); Sodium 141 mmol/L (136-145)
[2025-06-10 15:39] LABS: Anion Gap 11 (5-15); Calcium 10.1 mg/dL (8.7-10.4); Carbon Dioxide 27 mmol/L (20-31)
[2025-06-10 15:44] LABS: BUN/Creatinine Ratio 13.1 (10.0-20.0); Blood Urea Nitrogen 11 mg/dL (9-23); Glucose 265 mg/dL (74-106)
[2025-06-10 17:17] VITALS: BP 142/64; PULSE 65; RESP 12; TEMP 98.4; O2SAT 97
[2025-06-10] MEDS ORDERED: MECL12.586 PO (17:28)
== END 2025-06-10 17:42 | disposition home or self-care (01) ==
LOC: ER 13:34 → EDBD 13:34 → ER 17:42
DX: R42 Dizziness and giddiness (principal); E11.9 Type 2 diabetes mellitus without complications; I10 Essential (primary) hypertension; Z79.899 Other long term (current) drug therapy
CPT/HCPCS: 36415; 80048; 84484; 85025; 93005; 99284; J8597